=== PATIENT | female | born 1980 | race Caucasian/White ===

== ENCOUNTER 2017-09-21 09:14 | Emergency (ER) | payer MEDICAID ==
[~2017-09-21] VITALS: Ht 165.1 cm; Wt 72.4 kg
[~2017-09-21 09:14] MED LIST: CYCL-319 PO; HYDR-3498 PO; NAPR-260 PO; NITR-58 PO
[2017-09-21 09:18] VITALS: Ht 165.1 cm; Wt 72.4 kg
[2017-09-21] MEDS ORDERED: KETOROLAC 60 MG INJ IM STA (10:20)
--- NOTE | 2017-09-21 11:54 | RADRPT ---
PROCEDURE: XR Lumbar Spine. CLINICAL INDICATION: back pain TECHNIQUE: AP, lateral and cone-down lateral view of the lumbar spine were obtained. COMPARISON: No prior studies are available for comparison. FINDINGS: There are moderate degenerative changes of the lumbar spine at L5-S1. There is disk space narrowing , subchondral sclerosis and spondylosis. There is normal vertebral mineralization. There is dextroscoliosis of the lumbar spine.. No acute fracture is seen. There is no subluxation of vertebral bodies. The posterior elements are unremarkable. The soft tissues appear normal. RPTAT: AA IMPRESSION: Moderate degenerative changes of the lumbar spine at L5-S1. Dextroscoliosis of the lumbar spine. .Loc Mcleod MD, MD Date Time Electronically viewed and signed by .Loc Mcleod MD, on 09/21/2017 11:54 .S/
[2017-09-21] MEDS ORDERED: NAPR-260 PO (12:35)
--- NOTE | 2017-09-21 12:43 | ERD ---
ER Documentation Chief Complaint Chief Complaint right leg pain x 2 days HPI 36-year-old female patient with past medical history of chronic back pain presents to the ED complaining of right lower back pain that radiates down her right leg worsened in the last 2 days. States that she is unsure if she turned incorrectly and started to experience the pain. States that she is taking Tylenol without relief. Reports that it feels the same as previous back pain. Denies any chest pain, shortness of breath, nausea, vomiting, diarrhea, saddle anesthesia, urine or bowel incontinence, urinary retention. Denies any recent heavy lifting. ROS All systems reviewed and are negative except as per history of present illness. Medications Home Meds Active Scripts Naproxen* (Naprosyn*) 500 Mg Tablet, 500 MG PO BID Y for PAIN AND/OR INFLAMMATION, #30 TAB Prov:LEE KIRBY PA-C 09/21/17 Cyclobenzaprine Hcl* (Cyclobenzaprine Hcl*) 10 Mg Tablet, 10 MG PO TID, #15 TAB Prov:CARLOS CHAPMAN PA-C 10/19/15 Naproxen* (Naprosyn*) 500 Mg Tablet, 500 MG PO BID Y for PAIN AND/OR INFLAMMATION, #30 TAB Prov:CARLOS CHAPMAN PA-C 10/19/15 Hydrocodone Bit-Acetaminophen* (Whitman*) 5-325 Mg Tab, 1 TAB PO Q6 Y for PAIN, # 15 TAB Prov:CARLOS CHAPMAN PA-C 10/19/15 Nitrofurantoin Monohyd Macrocr* (Macrobid*) 100 Mg Capsr, 100 MG PO BID for 7 Days, CAP Prov:CARLOS CHAPMAN PA-C 10/19/15 Allergies Allergies: Coded Allergies: No Known Allergy (Unverified , 09/21/17) PMhx/Soc Medical and Surgical Hx: pt denies Medical Hx History of Surgery: Yes (HYSTERECTOMY) Anesthesia Reaction: No Hx Neurological Disorder: No Hx Respiratory Disorders: No Hx Cardiac Disorders: No Hx Psychiatric Problems: No Hx Miscellaneous Medical Probl: No Hx Alcohol Use: No Hx Substance Use: No Hx Tobacco Use: No Smoking Status: Never smoker Physical Exam Vitals Vital Signs Date Time Temp Pulse Resp B/P Pulse Ox O2 Delivery O2 Flow Rate FiO2 09/21/17 09:18 98.1 93 18 111/65 97 Physical Exam Const: Wrz-xko-ieokgoyat, well-nourished. In no acute distress. Head: Atraumatic, normocephalic Eyes: Normal Conjunctiva without injection. No purulent discharge. ENT: Normal external ear, nose. Moist oropharynx without tonsillar exudates. Non -erythematous pharynx. Uvula midline. No drooling. No trismus. Neck: No cervical midline tenderness. Full range of motion. No meningismus. No cervical lymphadenopathy. No JVD. Resp: Clear to auscultation bilaterally. No wheezing, rhonchi, rales, or crackles. No accessory muscle use. No retractions. Cardio: Regular rate and rhythm. No murmurs, rubs or gallops. Abd: Soft, nontender, non distended. Normal bowel sounds. No palpable masses. No rebound tenderness. No guarding. Negative McBurney's point. Negative psoas sign. Negative obturator sign. Skin: No petechiae or rashes Back: No midline tenderness. No CVA tenderness. Tenderness to palpation of the right lumbar muscles. Limited range of motion due to pain. Ext: No cyanosis, or edema. Neur: Awake and alert. Normal gait. Normal coordination. Psych: Normal Mood and Affect Results 24 hrs Current Medications Medications (Trade) Dose Ordered Sig/Josemanuel Route PRN Reason Start Time Stop Time Status Last Admin Dose Admin Ketorolac Tromethamine (Toradol) 60 mg ONCE STAT IM 09/21/17 10:20 09/21/17 10:21 DC 09/21/17 10:38 Procedures/MDM 36-year-old female patient with no significant past medical history presents to the ED complaining of right lower back pain that radiates to her right leg that started 2 days ago. Patient is afebrile and nontoxic-appearing. A lumbar x- ray was ordered to further evaluate patient since she had slight midline tenderness. Negative urine . Patient was given Toradol here in the ED with improvement of her symptoms. PROCEDURE: XR Lumbar Spine. CLINICAL INDICATION: back pain TECHNIQUE: AP, lateral and cone-down lateral view of the lumbar spine were obtained. COMPARISON: No prior studies are available for comparison. FINDINGS: There are moderate degenerative changes of the lumbar spine at L5-S1. There is disk space narrowing, subchondral sclerosis and spondylosis. There is normal vertebral mineralization. There is dextroscoliosis of the lumbar spine.. No acute fracture is seen. There is no subluxation of vertebral bodies. The posterior elements are unremarkable. The soft tissues appear normal. RPTAT: AA IMPRESSION: Moderate degenerative changes of the lumbar spine at L5-S1. Dextroscoliosis of the lumbar spine. She has lower back pain with sciatica. Patient is ambulating here in the ED without difficulty. Denies saddle anesthesia, numbness or tingling, urine or bowel incontinence, weakness. Low suspicion for cauda equina syndrome, cord compression, nephrolithiasis, aortic aneurysm, aortic dissection, epidural abscess, spinal hematoma, malignancy, pyelonephritis, or other emergent conditions. Discharge medications: Naproxen Follow up with primary care physician in 1-2 days. Instructed patient to return to the ED sooner for any worsening symptoms. Patient's questions were answered. Patient understood and agreed with discharge plan. Patient discharged stable. Departure Diagnosis: Primary Impression: Right low back pain Chronicity: unspecified Sciatica presence: with sciatica Sciatica laterality: sciatica laterality unspecified Qualified Code: M54.41 - Right- sided low back pain with sciatica, sciatica laterality unspecified, unspecified chronicity Condition: Stable Patient Instructions: Self-Care for Low Back Pain, Back Pain W/ Sciatica Referrals: [facility] YOU HAVE RECEIVED A MEDICAL SCREENING EXAM AND THE RESULTS INDICATE THAT YOU DO NOT HAVE A CONDITION THAT REQUIRES URGENT TREATMENT IN THE EMERGENCY DEPARTMENT. FURTHER EVALUATION AND TREATMENT OF YOUR CONDITION CAN WAIT UNTIL YOU ARE SEEN IN YOUR DOCTORS OFFICE WITHIN THE NEXT 1-2 DAYS. IT IS YOUR RESPONSIBILITY TO MAKE AN APPOINTMENT FOR FOLOW-UP CARE. IF YOU HAVE A PRIMARY DOCTOR --you should call your primary doctor and schedule an appointment IF YOU DO NOT HAVE A PRIMARY DOCTOR YOU CAN CALL OUR PHYSICIAN REFERRAL HOTLINE AT IF YOU CAN NOT AFFORD TO SEE A PHYSICIAN YOU CAN CHOSE FROM THE FOLLOWING [facility] [address] [facility] [address] [facility]. [facility] [address] [facility] [address] [facility] [address] [facility]. [facility] [address] [facility]. [facility] YOU HAVE RECEIVED A MEDICAL SCREENING EXAM AND THE RESULTS INDICATE THAT YOU DO NOT HAVE A CONDITION THAT REQUIRES URGENT TREATMENT IN THE EMERGENCY DEPARTMENT. FURTHER EVALUATION AND TREATMENT OF YOUR CONDITION CAN WAIT UNTIL YOU ARE SEEN IN YOUR DOCTORS OFFICE WITHIN THE NEXT 1-2 DAYS. IT IS YOUR RESPONSIBILITY TO MAKE AN APPOINTMENT FOR FOLOW-UP CARE. IF YOU HAVE A PRIMARY DOCTOR --you should call your primary doctor and schedule and appointment IF YOU DO NOT HAVE A PRIMARY DOCTOR YOU CAN CALL OUR PHYSICIAN REFERRAL HOTLINE AT . IF YOU CAN NOT AFFORD TO SEE A PHYSICIAN YOU CAN CHOSE FROM THE FOLLOWING [facility] INSTITUTIONS: [facility] [address] [place] [address] [facility] [address] [place] [address] [facility] + [facility] [address] [place] [address] [facility] URGENT CARE/SPECIALTIES Additional Instructions: Call your primary care doctor TOMORROW for an appointment during the next 2-3 days.See the doctor sooner or return here if your condition worsens before your appointment time. LEE KIRBY PA-C Sep 21, 2017 12:43
== END 2017-09-21 13:03 | disposition home or self-care (01) ==
LOC: FTE 09:14
DX: M54.41 Lumbago with sciatica, right side (principal)
CPT/HCPCS: 72100; 96372; J1885; Z7502

== ENCOUNTER 2018-01-15 06:16 | Emergency (ER) | END 2018-01-15 08:40 | disposition home or self-care (01) ==

== ENCOUNTER 2018-06-11 12:03 | Emergency (ER) | END 2018-06-11 15:41 | disposition home or self-care (01) ==